=== PATIENT | male | born 1950 | race African-American/Black ===

== ENCOUNTER 2018-02-24 22:13 | Emergency (ER) | payer MEDICARE, OTHER ==
[~2018-02-24] VITALS: Ht 170.2 cm; Wt 68.2 kg
[2018-02-24] MEDS ORDERED: MULT1CAP32 PO (22:21)
[2018-02-24] MEDS ORDERED: ASPI-556 PO (22:21)
[2018-02-24] MEDS ORDERED: BP MEDS PO (22:21)
[2018-02-25 01:03] VITALS: BP 132/88
[2018-02-25] MEDS ORDERED: BACITRACIN 0.9 GM PACKET OINTMENT TP ONE (01:15)
== END 2018-02-25 01:37 | disposition home or self-care (01) ==
LOC: EMS 22:16
DX: S00.01XA Abrasion of scalp, initial encounter (principal); F10.20 Alcohol dependence, uncomplicated; I10 Essential (primary) hypertension; F17.210 Nicotine dependence, cigarettes, uncomplicated; W45.8XXA Other foreign body or object entering through skin, initial encounter; Y93.89 Activity, other specified; Y92.89 Other specified places as the place of occurrence of the external cause; Y99.8 Other external cause status
CPT/HCPCS: 99282; 99406